=== PATIENT | female | born 1935 | race Caucasian/White ===

== ENCOUNTER 2017-07-28 11:58 | Inpatient (IN) ==
[2017-07-28 13:03] LABS: Basophils % 0.2 % (0.0-0.8); Hematocrit 37.8 VOL% (35.7-47.0); Hemoglobin 12.3 GM/DL (12.0-16.0); Immature Granulocytes % 1.2 %; Immature Granulocytes Absolute 0.18 #; Lymphocytes # 0.2 10*3/uL (1.4-4.0); Lymphocytes % 1.3 % (21.3-54.2); Mean Corpuscular HGB Conc 32.5 GM/DL (32-36); Mean Corpuscular Hemoglobin 28 PG (27-34); Mean Corpuscular Volume 84.4 FL (87-102); Mean Platelet Volume 8.8 FL (9.6-12.0); Monocytes # 0.4 10*3/uL (0.11-0.8); Monocytes % 2.7 % (1.7-12.7); Neutrophils # 14.6 10*3/uL (1.4-7.4); Neutrophils % 94.6 % (38.7-73.9); Platelet Count 507 T/CUMM (130-400); Red Blood Count 4.48 MC/CUMM (3.8-5.5); Red Cell Distribution Width 14.2 % (9.3-17.3); White Blood Count 15.4 T/CUMM (4-12)
[2017-07-28 13:25] LABS: Band Neutrophils 3 % (0-10); Giant Platelets Few; Hypochromasia 1+; Ovalocytes Slight; Platelet Estimate Increased; Segmented Neutrophils 92 % (50-85); Total Cells Counted 100
--- NOTE | 2017-07-28 13:27 | XRay Report ---
History: Shortness of breath Date: 07/28/2017 Study: Chest x-ray AP portable Comparison exam: November 08, 2010 The patient is status post previous right-sided thoracotomy and presumably partial pneumonectomy. There is cardiomegaly. There is no obvious mediastinal mass. There is some patchy and ill-defined infiltrate in the left mid to lower lung. There is some chronic scarring in the right lower lung, though there may be some superimposed mild hazy right upper lung infiltrate. 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 Osseous structures are unchanged. Impression: There is evidence of some pneumonia in the left mid to lower lung and possibly in the right upper lung PROCEDURE INTERPRETED AT [facility] DEPARTMENT OF RADIOLOGY Final Report Signed by: Dr. Miranda Camilo
[2017-07-28 13:30] LABS: Albumin 3.1 G/DL (3.4-5.0); Bilirubin,Total 0.4 MG/DL (0.2-1.0); Calcium 9.3 MG/DL (8.5-10.1); Osmolality,Calculated 254.5 MOS/KG (273-304); Potassium 3.5 MMOL/L (3.5-5.1); Troponin I Only 0.021 NG/ML (0.00-0.045)
[2017-07-28] MEDS ORDERED: cefTRIAXone 1,000 MG in SODIUM CHLORIDE 0.9% 100 ML IV STA (14:30)
--- NOTE | 2017-07-28 14:33 | Emergency Department Note ---
Narendra Morrison Manpreet, am scribing for, and in the presence of, Amaury Galeano MD 12:35. Froylan Morrison Doug C, MD, personally performed the services described in this documentation, ascribed by Glenn Mackey in my presence, and it is both accurate and complete 433 . Arrival - Arrival Chief Complaint: Shortness of Breath Stated Complaint: shortness of breath ED Nursing Triage Note: pt arrived via ems w/ complaint of shortness of breath that started just prior to arrival. Pt reports to EMS taht her shortness of breath has been ongoing for some time. States its no worse than usual. Family reports pt has only 1 lung d/t lung cancer 13yrs ago. Denies fever. Denies pain. Mode of Arrival: Stretcher Limitations: No Limitations Source: Patient, Family Time Seen by Provider: 07/28/17 12:25 - History of Present Illness HPI Narrative: Patient is a 81-year-old white female brought from home complaining of shortness of breath. Patient states she is not having any pain with this. She denies any cough or fever. She does not have any pain in her chest with deep breaths or cough. She has a prior history of lung cancer status post partial lobectomy 13 years ago. Her family notices she is not performing her usual duties around the house. She lives alone and manages her own affairs. She has not perceived any palpitations and she denies any PND or orthopnea symptoms. Onset (ago): hour(s) Consistency: constant Severity: moderate Allergies/Adverse Reactions: Allergies Allergy/AdvReac Type Severity Reaction Status Date / Time No Known Allergies Allergy Verified 07/28/17 14:19 Home Medications: Home Medications Medication Instructions Recorded Confirmed Type Aspirin 81 mg PO BEDTIME 07/28/17 07/28/17 History Calcium Carbonate [Calcium] 500 mg PO BID 07/28/17 07/28/17 History Dexamethasone [Dexamethasone Tab] 2 mg PO QAM 07/28/17 07/28/17 History Ferrous Sulfate [Iron] 325 mg PO BEDTIME 07/28/17 07/28/17 History Levothyroxine Tab [Synthroid Tab] 75 mcg PO BEDTIME 07/28/17 07/28/17 History Multivit-Min36/Iron/Folic Acid 1 each PO QAM 07/28/17 07/28/17 History [Geritol Complete Tablet] amLODIPine [Norvasc] 5 mg PO BEDTIME 07/28/17 07/28/17 History hydroCHLOROthiazide 25 mg PO DAILY PRN 07/28/17 07/28/17 History [Hydrochlorothiazide] Review of System - Review of System 12 point system: reviewed and no additional remarkable complaints except as stated - Review of System Constitutional: Present: other ("Pain all over"). Absent: chills, diaphoresis, fever Head/Ears/Nose/Throat: Absent: sore throat Respiratory: Present: respiratory distress. Absent: cough, wheezing Cardiovascular: Present: dyspnea on exertion. Absent: chest pain Gastrointestinal: Absent: abdominal pain, nausea, vomiting, diarrhea Genitourinary female: Absent: dysuria Musculoskeletal: Absent: back pain Skin: Absent: rash, lesions Neurological: Absent: headache, weakness, numbness, paresthesias Medical,Surgical,& Family Hx - Medical History Respiratory: History of: Lung Cancer Hematology: History of: Anemia Other: History of: Cancer (Lung cancer 13 yrs ago) - Surgical History Thoracic Surgeries: Surgical HX of;: Lobectomy - Family History Family History: noncontributory - Social History Smoking Status: Never smoker Frequency of Alcohol Use: None Type of Drug Use: None Exam Vital Signs: Vital Signs Temperature 98.8 F 07/28/17 12:00 Pulse Rate 85 07/28/17 13:00 Respiratory Rate 15 07/28/17 13:00 Blood Pressure 104/67 07/28/17 13:00 O2 Sat by Pulse Oximetry 100 07/28/17 13:00 - General General appearance: alert - Head Head exam: Present: atraumatic, normocephalic, normal inspection - Eye Eye exam: Present: normal appearance, PERRL, EOMI - ENT ENT exam: Present: normal exam, normal oropharynx, mucous membranes moist - Neck Neck exam: Present: normal inspection, full ROM, trachea midline - Chest Chest inspection: Present: normal inspection, symmetric chest wall rise - Respiratory Respiratory exam: Present: wheezes (Mild expiratory wheezing on left). Absent: normal lung sounds bilaterally, respiratory distress - Cardiovascular Cardiovascular exam: Present: regular rate, normal rhythm, murmur (3/6 systolic murmur at right base ). Absent: rubs, gallop - Abdominal Exam Abdominal exam: Present: soft, normal bowel sounds - Extremities Exam Extremities exam: Present: normal inspection, full ROM - Back Exam Back exam: Present: normal inspection, full ROM - Neurological Exam Neurological exam: Present: alert, oriented X3, CN II-XII intact, reflexes normal - Psychiatric Psychiatric exam: Present: normal affect, normal mood - Skin Skin exam: Present: warm, dry, intact, normal color. Absent: pallor Course Course Narrative: Patient's clinical presentation, laboratory and radiograph findings were discussed with both Dr. Rocha and Ghassan of the hospitalist service. Patient will be seen in the emergency room by Ghassan and evaluate for admission. Dr. Rocha will see her in consultation. Results - Labs CBC & BMP: 07/28/17 12:48 07/28/17 12:48 Lab Results: I have reviewed the patients labs Labs: Laboratory Tests 07/28/17 12:48 WBC 15.4 H RBC 4.48 Hgb 12.3 Hct 37.8 MCV 84.4 L MCH 28 MCHC 32.5 RDW 14.2 Plt Count 507 H MPV 8.8 L Neut % (Auto) 94.6 H Lymph % (Auto) 1.3 L Dixon % (Auto) 2.7 Eos % (Auto) 0.0 Baso % (Auto) 0.2 Neut # (Auto) 14.6 H Lymph # (Auto) 0.2 L Dixon # (Auto) 0.4 Eos # (Auto) 0.0 Baso # (Auto) 0.0 Immature Gran % 1.2 Nucleated RBC % 0.0 Immature Gran # 0.18 Nucleated RBCs # 0.00 Immature Plt Fraction 0.0 Laboratory Tests 07/28/17 12:48 Total Counted 100 Segmented Neutrophils 92 H Band Neutrophils 3 Monocytes 5 Platelet Estimate Increased Giant Platelets Few Hypochromasia 1+ Ovalocytes Slight Laboratory Tests 07/28/17 07/28/17 12:48 12:48 D-Dimer, Quantitative 0.7 Sodium 125 L Potassium 3.5 Chloride 79 L Carbon Dioxide 39 H Anion Gap 10.5 BUN 19 H Creatinine 0.50 L GFR Calculation 66 BUN/Creatinine Ratio 38.00 H Glucose 127 H Calculated Osmolality 254.5 L Calcium 9.3 Total Bilirubin 0.40 AST 19 ALT 24 Alkaline Phosphatase 55 Troponin I 0.021 Total Protein 7.0 Albumin 3.1 L Globulin 3.9 H Albumin/Globulin Ratio 0.7 L - EKG EKG results: interpreted by RICK, sinus rhythm (84 bpm) - Diagnostic Findings Procedure: Chest x-ray: report reviewed by me ("CXR: There is evidence of some pneumonia in the left mid to lower lung and possibly in the right upper lung.") Disposition Clinical Impression: Pneumonia Case discussed with: patient, patient's family Disposition: Still a Patient Condition: Stable Time of Disposition: 14:33
[2017-07-28] MEDS ORDERED: cefTRIAXone 1,000 MG VIAL ONE (14:35)
[2017-07-28 14:39] LABS: Apearance,Urine CLOUDY (Clear); Bacteria,Urine Few /HPF (Few); Bilirubin,Urine Negative (Negative); Blood, Urine Negative (Negative); Glucose,Urine (UA) Negative (Negative); Hyaline Casts,Urine 4 /LPF (0-3); Ketones,Urine Negative (Negative); Mucus,Urine Occasional /LPF (Occasional); Nitrite,Urine Negative (Negative); Protein,Urine Negative; RBC,Urine 1 /HPF (0-4); Squamous Epithelial Cell,Urine Occasional /HPF (0-10); Urine Color Amber (Yellow); Urine Specific Gravity 1.014 (1.001-1.035); Urine Urobilinogen < 2.0 EU/DL (0.2-1.0); WBC,Urine 4 /HPF (0-6)
--- NOTE | 2017-07-28 15:15 | Order Completion Report ---
See report scanned to EMR
[2017-07-28] MEDS ORDERED: INFLUENZA VIRUS VACCINE 0.5 ML SYRINGE IM ONE (16:13)
--- NOTE | 2017-07-28 16:13 | Hospitalist History & Physical ---
Assessment and Plan (1) Pneumonia Status: Acute Assessment and plan: s/p right partial pneumonectomy due to cancer. CXR showed an evidence of some pneumonia in the left mid to lower lung and possibly in the right upper lung. Plan IV Rocephin and Azithromax, oxygen, nebs treatment Follow [place], Influenza A & B testing Current Visit: Yes (2) Acute respiratory distress Status: Acute Assessment and plan: due to combination of pneumonia and the underlying lung pathology. 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 Patient has had poor intake in the last 1week. 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 She had become weaker, not able to do her regular activities. Last night, she began having worsening SOB, this am, she called her daughter who then called EMS that brought her to the ER.She denies associated history of fever, cough, chest pain and chest tightness. No history of wheezing, leg swelling or pain.No nausea or vomiting. Upon arrival to the ER,CXR showed an evidence of some pneumonia in the left mid to lower lung and possibly in the right upper lung.Labs showed an elevated WBC of 15.4, sodium of 125 and positive UA. She was given IV Rocephin and currently on admission for further care. Home Medications Medication Instructions Recorded Confirmed Type Aspirin 81 mg PO BEDTIME 07/28/17 07/28/17 History Calcium Carbonate [Calcium] 500 mg PO BID 07/28/17 07/28/17 History Dexamethasone [Dexamethasone Tab] 2 mg PO QAM 07/28/17 07/28/17 History Ferrous Sulfate [Iron] 325 mg PO BEDTIME 07/28/17 07/28/17 History Levothyroxine Tab [Synthroid Tab] 75 mcg PO BEDTIME 07/28/17 07/28/17 History Multivit-Min36/Iron/Folic Acid 1 each PO QAM 07/28/17 07/28/17 History [Geritol Complete Tablet] amLODIPine [Norvasc] 5 mg PO BEDTIME 07/28/17 07/28/17 History hydroCHLOROthiazide 25 mg PO DAILY PRN 07/28/17 07/28/17 History [Hydrochlorothiazide] Allergies Allergy/AdvReac Type Severity Reaction Status Date / Time No Known Allergies Allergy Verified 07/28/17 14:19 Medical,Surgical,& Family Hx - Medical History Respiratory: History of: Lung Cancer Hematology: History of: Anemia Other: History of: Cancer (Lung cancer 13 yrs ago) - Surgical History Thoracic Surgeries: Surgical HX of;: Lobectomy - Social History Smoking Status: Never smoker Frequency of Alcohol Use: None Type of Drug Use: None 12 point system: reviewed and no additional remarkable complaints except as stated Exam - Constitutional Vitals: Period Temp Pulse Resp BP Sys/Gallego Pulse Ox Last 24 Hr 98.8 F-98.8 F 77-92 15-33 103-132/52-72 97-100 General appearance: mild distress, cachectic - Head Head exam: Present: normal inspection - Respiratory Respiratory exam: Present: decreased breath sounds - Cardiovascular Cardiovascular exam: Present: regular rate and rhythm - GI/Abdominal GI/Abdominal exam: Present: normal bowel sounds - Extremities Exam Extremities exam: Present: normal inspection - Neurological Exam Neurological exam: Present: alert, oriented X3 Results - Labs CBC & BMP: 07/28/17 12:48 07/28/17 12:48 Lab Results: I have reviewed the past 24 hour labs
[2017-07-28] MEDS ORDERED: ALBUTEROL/IPRATROPIUM 3 ML NEB RESP TX PRN (17:19)
[2017-07-28] MEDS ORDERED: ENOXAPARIN 40 MG/0.4 ML SYRINGE SUBCUT SCH (18:00)
[2017-07-28 18:12] LABS: Troponin I Only 0.023 NG/ML (0.00-0.045)
[2017-07-28] MEDS: SODIUM CHLORIDE 0.9% 1,000 ML IV SCH (18:14)
[2017-07-28 18:21] LABS: Calcium 9.1 MG/DL (8.5-10.1); Free T4 (Free Thyroxine) 0.85 NG/DL (0.76-1.46); Magnesium 2.1 MG/DL (1.8-2.4); Osmolality,Calculated 257.2 MOS/KG (273-304); Potassium 3.4 MMOL/L (3.5-5.1); Risk Ratio 2.31; VLDL CHOLESTEROL 19.2 MG/DL
--- NOTE | 2017-07-28 18:35 | CT Report ---
History: Shortness of breath. Pneumonia. History of lung cancer. Elevated d-dimer Date: 07/28/2017 Study: CT chest with IV contrast with pulmonary embolus technique Comparison exam: CT chest March 18, [address] exam was performed using one or more of the following dose reduction techniques: Automated exposure control, adjustment of the mA and/or kV according to patient size, or use of iterative reconstruction technique. Spiral CT sections were obtained through the lungs following the IV administration of 80 mL of Omnipaque 350 without immediate complication . Multiplanar reconstruction images are also evaluated. There is no definite discrete filling defect within the pulmonary arterial tree to suggest acute pulmonary embolic disease. There is no thoracic aortic aneurysm or dissection. There is no obvious mediastinal mass or mediastinal lymphadenopathy. There is some enlarging cavitary change in the mid to inferior right lung with some partial internal septation, enlarged compared to the previous study from 2013. This occupies the lower 40% of the right hemithorax. There is some compressive atelectasis of the adjacent right midlung. There is also some right perihilar patchy pneumonia. There is some mild tree-in-bud type infiltrate in the left upper lobe with infiltrative changes also extending into to the lingula. There is no acute abnormality of the partially visualized upper abdomen. Impression: No evidence of acute pulmonary embolic disease Tree-in-bud infiltrate in the left upper lung which could represent nonspecific bronchiolitis. Also consider mycobacterial infection and chronic aspiration. Mild patchy right perihilar opacity, presumably inflammatory/infectious There is an enlarging cavitary area occupying the lower 40% of the right hemithorax, enlarged since 2013. This could represent slowly enlarging chronic inflammatory-type lesion. Neoplasm is thought to be less likely, but in the differential diagnosis. PROCEDURE INTERPRETED AT [facility] DEPARTMENT OF RADIOLOGY Final Report Signed by: Dr. Miranda Camilo
[2017-07-28] MEDS: AZITHROMYCIN INJ 500 MG in SODIUM CHLORIDE 0.9% 250 ML IV SCH (18:48)
[2017-07-28] MEDS: FERROUS SULFATE 325 MG TABLET PO SCH (21:10)
[2017-07-28] MEDS: amLODIPine 5 MG TABLET PO SCH (21:11)
[2017-07-28] MEDS: LEVOTHYROXINE 75 MCG TABLET PO SCH (21:13)
[2017-07-28] MEDS: ASPIRIN CHEW 81 MG TABLET PO SCH (21:15)
[2017-07-28] MEDS: CALCIUM (CARBONATE) 500 MG TABLET PO SCH (22:28)
[2017-07-29 04:51] LABS: Basophils % 0.1 % (0.0-0.8); Eosinophils % 0.1 % (0.00-10.9); Hematocrit 32.9 VOL% (35.7-47.0); Hemoglobin 10.6 GM/DL (12.0-16.0); Immature Granulocytes % 0.9 %; Immature Granulocytes Absolute 0.09 #; Lymphocytes # 0.7 10*3/uL (1.4-4.0); Mean Corpuscular HGB Conc 32.2 GM/DL (32-36); Mean Corpuscular Hemoglobin 27 PG (27-34); Mean Corpuscular Volume 84.6 FL (87-102); Mean Platelet Volume 9.5 FL (9.6-12.0); Monocytes # 0.5 10*3/uL (0.11-0.8); Monocytes % 5.3 % (1.7-12.7); Neutrophils # 8.8 10*3/uL (1.4-7.4); Neutrophils % 86.6 % (38.7-73.9); Platelet Count 441 T/CUMM (130-400); Red Blood Count 3.89 MC/CUMM (3.8-5.5); Red Cell Distribution Width 14.1 % (9.3-17.3); White Blood Count 10.1 T/CUMM (4-12)
[2017-07-29 05:24] LABS: Alanine Aminotransferase 18 U/L (13-56); Albumin 2.5 G/DL (3.4-5.0); Alkaline Phosphatase 41 U/L (45-117); Aspartate Amino Transferase 13 U/L (0-37); Blood Urea Nitrogen 15 MG/DL (7-18); Glucose 76 MG/DL (74-106); Osmolality,Calculated 257.9 MOS/KG (273-304); Potassium 3.4 MMOL/L (3.5-5.1); Sodium 129 MMOL/L (136-145); Total Protein 5.4 G/DL (6.4-8.3); Troponin I Only 0.027 NG/ML (0.00-0.045)
[2017-07-29] MEDS: PANTOPRAZOLE 40 MG TABLET PO SCH (08:44)
[2017-07-29] MEDS: MULTIVITAMIN (CENTRUM) TABLET PO SCH (08:44)
[2017-07-29] MEDS: CALCIUM (CARBONATE) 500 MG TABLET PO SCH ×2 (08:45→21:11)
[2017-07-29] MEDS ORDERED: DEXAMETHASONE 4 MG TABLET PO SCH (09:00)
[2017-07-29] MEDS: SODIUM CHLORIDE 0.9% 1,000 ML IV SCH (13:56)
[2017-07-29] MEDS: methylPREDNISolone SOD SUC 40 MG/1 ML VIAL IV SCH (16:03)
[2017-07-29] MEDS: ZINC OXIDE PASTE 113 GM TUBE TOP PRN (16:05)
[2017-07-29 16:11] LABS: % Iron Saturation 62.6 % (18-50)
--- NOTE | 2017-07-29 16:12 | Pulmonology Consult Note ---
History of Present Illness Chief complaint: Weakness. Mild alteration in mental status. UTI. Iron deficiency. History of present illness: Ms. Dasilva is a 81 year old white female whom I have seen in my office in the past. I been consult to see her in pulmonary consultation for evaluation and treatment. Patient was seen along with 3 family members. Patient has felt weak and she has had trouble with concentration. She has had trouble keeping up with what she normally does at home. She lives alone. She has some vague increased shortness of breath. She has had no significant cough. Daughter says that she has active sort of needy lately. Most of the other complaints have been nonspecific. The remainder of the review of systems is negative Allergies. None Medicines. Baby aspirin once a day calcium 500 twice daily dexamethasone 2 mg every morning. This was started recently. Iron grains 5 once a day. Synthroid 75 mcg daily Geritol tablet 1 every morning Norvasc 5 mg daily Hydrochlorothiazide 25 mg daily Past history. Recent onset of iron deficiency anemia. Previous on lobectomy right lung for melanoma. Hypothyroidism. Osteoporosis. Social history. Lives alone. Does not use alcohol and never smoked. Family history. Noncontributory. Chest x-ray. My interpretation. 07/28/2017. On the right side there is been a previous lobectomy. The residual right upper lung has gradually decreased in size mainly secondary to pleural disease. There is cystic areas within the residual right upper lung. Left lung reveals multiple areas of interstitial scarring. Both hilar areas contain calcifications. The trachea and mainstem bronchi are calcified. There is no heart failure and I see no masses. CT scan of the chest. Right upper lung is mainly becoming a cystic cavity. This is progressed in the last 3 years. No mass-effect. Mild changes in the left upper lung may reflect infection. No evidence of pulmonary emboli. Echocardiogram. 10/31/2016. Left ventricular ejection fraction is greater than 65%. There is mild concentric left ventricular hypertrophy with diastolic dysfunction. +2 increase in left atrial diameter. Mildly thickened mitral valve with mild mitral regurgitation and moderate aortic stenosis. Mean aortic valve gradient was 17 mmHg and the aortic valve area was calculated at 1.4 cm. Pulmonary artery pressures were 28.9 mmHg plus right atrial pressure which is usually 4-8. Moderate tricuspid regurgitation. Bone density studies. 03/27/2017. 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 High risk for fracture. Sodium is 129. Potassium 3.4. Chloride is 87. Creatinine is 0.4. BUN is 37. Hemoglobin A1c is 6.2. Liver function tests are normal troponin is normal. Natruretic peptide was 303. Total protein and albumin are low at 5.4 and 2.5 respectively. Thyroid function tests are normal. H&H is 10.6/32.9. MCV is low and the other indices are low normal with a normal red blood cell distribution with platelets of 441,000 with a low MPV. White count at admission was 15,400 with 94.66. This is now dropped to 10,100 with 86.66 urinalysis showed a few bacteria. Microbiology. Urine is growing greater than 100,000 gram-negative rods. Influenza screens are negative. Blood cultures are not growing at 1 day. Vital signs. Normal. See below. O2 sats are 99%. Psychiatric. Oriented 3 but not particularly good historian Neurologic. Cranial nerves are intact with severe decrease hearing acuity. Long track motor functions intact. Sensory exam and gait were not done. Face. Symmetrical. No edema of the tongue or lips. Neck. Symmetrical. No mass no meningismus. Chest. Asymmetrical. Hardly any breath sounds in the right. There is a little after surprisingly good and I hear no wheezing. Heart. PMI is normal. There is a grade 1/2 over 6 systolic ejection murmur heard over the aortic valve area. Abdomen. Nontender Extremities. No edema Skin of the face hands and lower legs showed no cancerous infectious lesions. No other areas were examined. Arterial. Carotid upstroke is fair. Upper extremity pulses are palpable lower extremity pulses are nonpalpable but there is no evidence of lower extremity ischemia Venous exam neck upper and lower extremities are normal. The remainder the exam is noncontributory. Impression. 1. Probable urinary tract infection with gram-negative tuyet. 2. Altered mental status. Suspect it will automatic glove turner and former to be secondary to #1 #3. Possible early left upper lung pulmonary infection. 4. Iron deficiency anemia 5. Hypothyroidism on replacement. Check for adequacy of replacement. 6. Volume depletion with mild prerenal azotemia. Diuretics have been stopped. 7. Osteo-porosis. 8. 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 Progressive scarring in the right hemithorax with large cystic areas forming in the residual right lung and progressive pleural disease. 9. Mild hyponatremia and hypokalemia Plan. 1. Continue Zithromax. 2. Change Rocephin to Fortaz pending urine cultures 3. Recheck iron total iron-binding capacity. The patient is not getting enough iron or iron infusion may help. 3. Follow-up chest x-ray 4. ABGs 5. Discontinue Lovenox 6. Change low-dose Decadron the low-dose Solu-Medrol. 7. See orders. Home Medications Medication Instructions Recorded Confirmed Type Aspirin 81 mg PO BEDTIME 07/28/17 07/28/17 History Calcium Carbonate [Calcium] 500 mg PO BID 07/28/17 07/28/17 History Dexamethasone [Dexamethasone Tab] 2 mg PO QAM 07/28/17 07/28/17 History Ferrous Sulfate [Iron] 325 mg PO BEDTIME 07/28/17 07/28/17 History Levothyroxine Tab [Synthroid Tab] 75 mcg PO BEDTIME 07/28/17 07/28/17 History Multivit-Min36/Iron/Folic Acid 1 each PO QAM 07/28/17 07/28/17 History [Geritol Complete Tablet] amLODIPine [Norvasc] 5 mg PO BEDTIME 07/28/17 07/28/17 History hydroCHLOROthiazide 25 mg PO DAILY PRN 07/28/17 07/28/17 History [Hydrochlorothiazide] Allergies Allergy/AdvReac Type Severity Reaction Status Date / Time No Known Allergies Allergy Verified 07/28/17 14:19 Exam (Pulmonay) H&P - Constitutional Vitals: Period Temp Pulse Resp BP Sys/Gallego Pulse Ox Last 24 Hr 97.5 F-98.3 F 71-107 18-20 103-128/49-69 99-100 Medical,Surgical,& Family Hx - Medical History Endocrine: History of: Thyroid Disorder Respiratory: History of: Lung Cancer Hematology: History of: Anemia Other: History of: Cancer (Lung cancer 13 yrs ago) - Surgical History Thoracic Surgeries: Surgical HX of;: Lobectomy - Social History Smoking Status: Never smoker Frequency of Alcohol Use: None Type of Drug Use: None Results - Labs CBC & BMP: 07/29/17 03:43 07/29/17 03:43
[2017-07-29 16:21] LABS: Free T4 (Free Thyroxine) 1.01 NG/DL (0.76-1.46); Thyroid Stimulating Hormone 3.27 uIU/ml (0.358-3.74)
[2017-07-29] MEDS: AZITHROMYCIN INJ 500 MG in SODIUM CHLORIDE 0.9% 250 ML IV SCH (17:04)
[2017-07-29] MEDS: ASPIRIN CHEW 81 MG TABLET PO SCH (21:11)
[2017-07-29] MEDS: FERROUS SULFATE 325 MG TABLET PO SCH (21:11)
[2017-07-29] MEDS: amLODIPine 5 MG TABLET PO SCH (21:11)
[2017-07-29] MEDS: LEVOTHYROXINE 75 MCG TABLET PO SCH (21:11)
[2017-07-30 02:42] LABS: ABG Base Excess 11.5 MMOL/L (-2.5-2.5); ABG HCO3 38.3 MMOL/L (20-26); ABG Oxygen Saturation 98.7 % (95-100); ABG PCO2 62.5 MM HG (35-48); ABG PH 7.405 (7.35-7.45); ABG PO2 129.2 MM HG (80-95); ABG TCO2 40.2 MMOL/L (23-27); Allen Test Positive
[2017-07-30] MEDS: methylPREDNISolone SOD SUC 40 MG/1 ML VIAL IV SCH ×2 (04:06→15:31)
[2017-07-30] MEDS: CALCIUM (CARBONATE) 500 MG TABLET PO SCH ×2 (08:46→21:21)
[2017-07-30] MEDS: MULTIVITAMIN (CENTRUM) TABLET PO SCH (08:46)
[2017-07-30] MEDS: PANTOPRAZOLE 40 MG TABLET PO SCH (08:46)
--- NOTE | 2017-07-30 09:00 | XRay Report ---
Portable chest Date: 07/30/2017 Clinical history: Shortness of breath Comparison: 07/28/2017 Technique: Portable AP sitting chest Findings: Stable cardiomegaly. Prior right thoracotomy with persistent relative elevation right hemidiaphragm. Bullous emphysema with fairly stable appearing pleural parenchymal findings in the right hemithorax. Progressive parenchymal findings at the left mid to lower lung zone. Persistent shift of mediastinum to the right with degenerative changes. Impression: Status post right thoracotomy with little change in the pleural-parenchymal findings in the right hemithorax in patient with bullous emphysema. Progressive infiltration/edema in the left mid to lower lung zone. PROCEDURE INTERPRETED AT [facility] DEPARTMENT OF RADIOLOGY Final Report Signed by: Dr. Melani Vazquez
[2017-07-30] MEDS ORDERED: CYANOCOBALAMIN 1000 MCG/1 ML VIAL IM ONE (11:26)
--- NOTE | 2017-07-30 13:04 | Pulmonology Progress Note ---
Pulmonary - PN: Subj Interval history: Casey Miguel, [facility] acting as scribe for Dr. Winston Rocha Ms. Dasilva is an 81-year-old white female long-term patient of Dr. Fowler who is on initial pulmonary consultation 07/29/2017. At that time, our impressions were: 1. Probable urinary tract infection with gram-negative tuyet. 2. Altered mental status. Suspect it will air turning machine feeder to be secondary to #1 3. Possible early left upper lung pulmonary infection. 4. Iron deficiency anemia 5. Hypothyroidism on replacement. Check for adequacy of replacement. 6. Volume depletion with mild prerenal azotemia. Diuretics have been stopped. 7. Osteo-porosis. 8. 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 Progressive scarring in the right hemithorax with large cystic areas forming in the residual right lung and progressive pleural disease. 9. Mild hyponatremia and hypokalemia 07/30/2017. 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 Today 's chest x-ray is stable. Sputum for Gram stain, culture and sensitivity was ordered yesterday, but thus far the patient has not produced a sputum for testing. Cold agglutinins are negative at 1:2. Legionella is pending. ABGs this morning on an FiO2 of 28% showed a pH of 7.405, PCO2 62.5, PO2 129.2, bicarb 38.3, and oxygen saturation 98.7%. Because of her CO2 retention, we will start Diamox 250 mg IV daily. Will repeat ABGs and BMP in the morning. Iron studies are normal. B12 is low at 292 so she will be given B12 injection today. We will obtain a folic acid level. Urine is growing a gram-negative tuyet. Final ID and sensitivities pending. She is on azithromycin and Fortaz and has been afebrile. Medications have been reviewed. Labs been reviewed. Exam (Progress Note) - Constitutional Vitals: Period Temp Pulse Resp BP Sys/Gallego Pulse Ox Last 24 Hr 96.6 F-97.8 F 70-84 18-18 91-108/51-66 98-100 Exam: Chest is asymmetrical with hardly any breath sounds on the right; no appreciable wheeze Heart no gallop Abdomen is nontender and nondistended; bowel sounds positive 4 Extremities with nothing to suggest acute deep venous thrombophlebitis Psychiatric oriented 3 Neurologic long-term motor function is intact Plan: Start Diamox 250 mg IV daily. Repeat ABGs and BMP in the morning. Check folate level. B12 injection today. See orders. Results - Labs CBC & BMP: 07/29/17 03:43 07/29/17 03:43
[2017-07-30] MEDS: SODIUM CHLORIDE 0.9% 1,000 ML IV SCH (13:51)
--- NOTE | 2017-07-30 16:30 | Physician Query Form ---
CLICK EDIT DOCUMENT TO SELECT QUERY ANSWER --> OK --> SIGN Jessica López RN Clinical Hydraulic Jack Operator W) [phone] (f) [phone] [email or web address] PROVIDERS: Make your selection(s) from the choices in EACH section by typing an "x" and enter comments in the comment section. Please use your independent medical judgment in providing your response. This request does not imply that any particular answer is desired or expected. CLINICAL INDICATORS: (Providers should not edit this section) Height: 5FT 3IN Weight: 77 LBS Credit Specialist BMI: 13.7 Motorcycle Repair Shop Supervisor notes:UNINTENTIONAL WEIGHT LOSS Other clinical notes: CACHECTIC Based on the above, which following choice most accurately represents the patient's nutritional status? ( ) Malnutrition ( ) mild ( ) moderate ( x) severe ( ) Protein calorie malnutrition ( ) mild ( ) moderate ( ) severe ( ) Emaciation due to malnutrition ( ) Nutritional marasmus ( ) Cachexia ( ) Underweight ( ) No nutritional deficiency ( ) Other, please specify: ( ) Clinically unable to determine Mild Malnutrition (BMI < 18.5, % Normal Body Weight 85-95%) Moderate Malnutrition (BMI < 17, % Normal Body Weight 75-85%) Severe Malnutrition (BMI < 16, % Normal Body Weight < 75%) Source: [place] COMMENTS: PLEASE ALSO DOCUMENT RESPONSE IN PROGRESS NOTES AND/OR DISCHARGE SUMMARY Use of terms such as suspected, likely, or probable (associated with a specific diagnosis that is being evaluated, monitored, or treated as if it exists) are acceptable and can be restated in the discharge summary if not ruled out. MTDD
[2017-07-30] MEDS: AZITHROMYCIN INJ 500 MG in SODIUM CHLORIDE 0.9% 250 ML IV SCH (17:16)
--- NOTE | 2017-07-30 17:45 | Hospitalist Progress Note ---
Assessment and Plan (1) UTI (urinary tract infection) Status: Acute Assessment and plan: The patient has E. coli urinary tract infection sensitive to most antibiotics. We will continue with present antimicrobial care and recheck CBC and BMP in the morning. Current Visit: Yes Qualifiers: Urinary tract infection type: acute cystitis Hematuria presence: without hematuria Qualified Code(s): N30.00 - Acute cystitis without hematuria (2) S/P pneumonectomy Status: Acute Current Visit: Yes Hospitalist: Subjective Interval history: Mrs. Dasilva has previous right lung pneumonectomy. She now comes to hospital with weakness and some shortness of breath. She has urinary tract infection documented to be E. coli pansensitive to antibiotics. The patient may have early pneumonia on the left-hand side. The patient is improving and appetite is better. Exam - Constitutional Vitals: Period Temp Pulse Resp BP Sys/Gallego Pulse Ox Last 24 Hr 96.8 F-97.8 F 70-84 18-18 91-112/51-66 98-100 General appearance: mild distress - Respiratory Respiratory exam: Present: decreased breath sounds (On the right side), rhonchi (On the left-hand side) - Cardiovascular Cardiovascular exam: Present: regular rate and rhythm - GI/Abdominal GI/Abdominal exam: Present: normal bowel sounds Results - Labs CBC & BMP: 07/29/17 03:43 07/29/17 03:43 Lab Results: I have reviewed the past 24 hour labs
[2017-07-30] MEDS: LEVOTHYROXINE 75 MCG TABLET PO SCH (21:21)
[2017-07-30] MEDS: amLODIPine 5 MG TABLET PO SCH (21:21)
[2017-07-30] MEDS: ASPIRIN CHEW 81 MG TABLET PO SCH (21:21)
[2017-07-30] MEDS: FERROUS SULFATE 325 MG TABLET PO SCH (21:21)
[2017-07-31] MEDS: methylPREDNISolone SOD SUC 40 MG/1 ML VIAL IV SCH ×2 (04:30→15:37)
[2017-07-31 05:49] LABS: Basophils % 0.1 % (0.0-0.8); Hematocrit 33.1 VOL% (35.7-47.0); Hemoglobin 10.4 GM/DL (12.0-16.0); Immature Granulocytes % 0.9 %; Immature Granulocytes Absolute 0.15 #; Lymphocytes # 0.5 10*3/uL (1.4-4.0); Mean Corpuscular HGB Conc 31.4 GM/DL (32-36); Mean Corpuscular Hemoglobin 28 PG (27-34); Mean Corpuscular Volume 87.6 FL (87-102); Mean Platelet Volume 8.8 FL (9.6-12.0); Monocytes # 0.6 10*3/uL (0.11-0.8); Monocytes % 3.6 % (1.7-12.7); Neutrophils # 15.3 10*3/uL (1.4-7.4); Neutrophils % 92.4 % (38.7-73.9); Platelet Count 430 T/CUMM (130-400); Red Blood Count 3.78 MC/CUMM (3.8-5.5); Red Cell Distribution Width 14.2 % (9.3-17.3); White Blood Count 16.5 T/CUMM (4-12)
[2017-07-31 06:11] LABS: Lymphocytes 2 % (20-55); Segmented Neutrophils 95 % (50-85); Total Cells Counted 100
[2017-07-31 06:12] LABS: Calcium 8.4 MG/DL (8.5-10.1); Giant Platelets Few; Hypochromasia 1+; Magnesium 1.9 MG/DL (1.8-2.4); Osmolality,Calculated 270.1 MOS/KG (273-304); Platelet Estimate Adequate; Potassium 3.7 MMOL/L (3.5-5.1)
[2017-07-31 06:14] LABS: ABG Base Excess 7.3 MMOL/L (-2.5-2.5); ABG Oxygen Saturation 98.7 % (95-100); ABG PCO2 52.4 MM HG (35-48); ABG PH 7.417 (7.35-7.45); ABG PO2 123.8 MM HG (80-95); ABG TCO2 34.6 MMOL/L (23-27)
[2017-07-31] MEDS: SODIUM CHLORIDE 0.9% 1,000 ML IV SCH ×2 (06:14→13:16)
--- NOTE | 2017-07-31 08:20 | XRay Report ---
Portable chest Date: 07/31/2017 Clinical history: Shortness of breath Comparison: 07/30/2017 Technique: Portable AP sitting chest Findings: Stable cardiomegaly in patient with prior right thoracotomy. Persistent shift of mediastinum to the right with relative elevation of the right hemidiaphragm. No significant change in the parenchymal findings in the lungs with stable pleural effusions. Degenerative changes are noted. Impression: Status post right thoracotomy with bullous emphysema. Fairly stable appearing infiltration/edema with small pleural effusions and cavitary/cystic pathology in the right mid-lower lung zone.. It is difficult to exclude additional underlying pathology and continued follow-up chest x-ray is recommended. PROCEDURE INTERPRETED AT [facility] DEPARTMENT OF RADIOLOGY Final Report Signed by: Dr. Melani Vazquez
[2017-07-31] MEDS: MULTIVITAMIN (CENTRUM) TABLET PO SCH (09:21)
[2017-07-31] MEDS: CALCIUM (CARBONATE) 500 MG TABLET PO SCH ×2 (09:21→21:11)
[2017-07-31] MEDS: PANTOPRAZOLE 40 MG TABLET PO SCH (09:39)
[2017-07-31] MEDS: ZINC OXIDE PASTE 113 GM TUBE TOP PRN (12:04)
--- NOTE | 2017-07-31 12:52 | Pulmonology Progress Note ---
Pulmonary - PN: Subj Interval history: Casey Miguel, [facility] acting as scribe for Dr. Winston Rocha Ms. Dasilva is an 81-year-old white female long-term patient of Dr. Fowler who is on initial pulmonary consultation 07/29/2017. At that time, our impressions were: 1. Probable urinary tract infection with gram-negative tuyet. 2. Altered mental status. Suspect it will return to factory clerk to be secondary to #1 3. Possible early left upper lung pulmonary infection. 4. Iron deficiency anemia 5. Hypothyroidism on replacement. Check for adequacy of replacement. 6. Volume depletion with mild prerenal azotemia. Diuretics have been stopped. 7. Osteo-porosis. 8. 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 Progressive scarring in the right hemithorax with large cystic areas forming in the residual right lung and progressive pleural disease. 9. Mild hyponatremia and hypokalemia 07/30/2017. The patient was seen today along with her patient pet care associate. Today 's chest x-ray is stable. Sputum for Gram stain, culture and sensitivity was ordered yesterday, but thus far the patient has not produced a sputum for testing. Cold agglutinins are negative at 1:2. Legionella is pending. ABGs this morning on an FiO2 of 28% showed a pH of 7.405, PCO2 62.5, PO2 129.2, bicarb 38.3, and oxygen saturation 98.7%. Because of her CO2 retention, we will start Diamox 250 mg IV daily. Will repeat ABGs and BMP in the morning. Iron studies are normal. B12 is low at 292 so she will be given B12 injection today. We will obtain a folic acid level. Urine is growing a gram-negative tuyet. Final ID and sensitivities pending. She is on azithromycin and Fortaz and has been afebrile. Medications have been reviewed. Labs been reviewed. 07/31/2017. The patient was seen today along with her brother and several other family members. The patient is doing well this morning. She has had increased appetite secondary to Solu-Medrol. She has been on long-term dexamethasone treatment because of scarring in the right hemithorax. Admission she has sodium of 125 and with the discontinuation of her hydrochlorothiazide, this has improved to 135. Urine culture grew E. coli. This is being appropriately treated with antibiotics. Mentation has improved back to her baseline. Her family had several questions regarding her need for home health, physical therapy, etc. We have spoken with Venus Walter, social work nurse, and will ask her to speak with the patient and her family regarding discharge planning needs. We feel she will most likely benefit from home health and home physical therapy. Medications have been reviewed. We made no changes today. Labs been reviewed. White count is 16,500 with 92.4% segs; H&H 10.4/33.1; platelet count 130,000; creatinine 0.30, BUN 13, sodium 135, potassium 3.7, magnesium 1.9; folate is normal at 12.9 ABGs this morning on an unlisted FiO2 showed a pH of 7.417, PCO2 52.4, PO2 123.8 , bicarb 33.0, and oxygen saturation 98.7% Exam (Progress Note) - Constitutional Vitals: Period Temp Pulse Resp BP Sys/Gallego Pulse Ox Last 24 Hr 97.3 F-98.3 F 78-91 14-18 103-116/50-64 95-99 Exam: Chest is asymmetrical with hardly any breath sounds on the right; no appreciable wheeze Heart no gallop Abdomen is nontender and nondistended; bowel sounds positive 4 Extremities with nothing to suggest acute deep venous thrombophlebitis Psychiatric oriented 3 Neurologic long-term motor function is intact Plan: Continue present treatment. services program manager consult for discharge planning. See orders. Results - Labs CBC & BMP: 07/31/17 05:12 07/31/17 05:12
--- NOTE | 2017-07-31 16:06 | Hospitalist Progress Note ---
Hospitalist: Subjective Interval history: Assessment and Plan: E Coli UTI, POA Status: Acute Assessment and plan: E. coli is pansensitive, continue Fortaz Current Visit: Yes Metabolic encephalopathy and acute delirium Status: Acute Assessment and plan: Was due to UTI, mental status is improving Current Visit: Yes S/P pneumonectomy Status: Acute Current Visit: Yes She possibly has left upper lung pulmonary pneumonitis, continue antibiotics Physical deconditioning, physical therapy has been ordered. hop farm worker is following for swing bed placement. Exam - Constitutional Vitals: Period Temp Pulse Resp BP Sys/Gallego Pulse Ox Last 24 Hr 97.3 F-98.4 F 77-91 14-22 101-116/50-64 95-99 Results - Labs CBC & BMP: 07/31/17 05:12 07/31/17 05:12
[2017-07-31] MEDS: AZITHROMYCIN INJ 500 MG in SODIUM CHLORIDE 0.9% 250 ML IV SCH (17:10)
[2017-07-31] MEDS: LEVOTHYROXINE 75 MCG TABLET PO SCH (21:11)
[2017-07-31] MEDS: FERROUS SULFATE 325 MG TABLET PO SCH (21:11)
[2017-07-31] MEDS: amLODIPine 5 MG TABLET PO SCH (21:11)
[2017-07-31] MEDS: ASPIRIN CHEW 81 MG TABLET PO SCH (21:11)
[2017-08-01] MEDS: methylPREDNISolone SOD SUC 40 MG/1 ML VIAL IV SCH ×2 (04:02→16:31)
[2017-08-01 06:37] LABS: Calcium 8.3 MG/DL (8.5-10.1); Magnesium 2.2 MG/DL (1.8-2.4); Osmolality,Calculated 269.1 MOS/KG (273-304); Potassium 3.8 MMOL/L (3.5-5.1)
[2017-08-01] MEDS: MULTIVITAMIN (CENTRUM) TABLET PO SCH (09:24)
[2017-08-01] MEDS: CALCIUM (CARBONATE) 500 MG TABLET PO SCH ×2 (09:24→21:30)
[2017-08-01] MEDS: PANTOPRAZOLE 40 MG TABLET PO SCH (09:25)
--- NOTE | 2017-08-01 11:33 | Pulmonology Progress Note ---
Pulmonary - PN: Subj Interval history: Casey Miguel, [facility] acting as scribe for Dr. Winston Rocha Ms. Dasilva is an 81-year-old white female long-term patient of Dr. Fowler who is on initial pulmonary consultation 07/29/2017. At that time, our impressions were: 1. Probable urinary tract infection with gram-negative tueyt. 2. Altered mental status. Suspect it will turner in to be secondary to #1 3. Possible early left upper lung pulmonary infection. 4. Iron deficiency anemia 5. Hypothyroidism on replacement. Check for adequacy of replacement. 6. Volume depletion with mild prerenal azotemia. Diuretics have been stopped. 7. Osteo-porosis. 8. 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 Progressive scarring in the right hemithorax with large cystic areas forming in the residual right lung and progressive pleural disease. 9. Mild hyponatremia and hypokalemia 07/30/2017. The patient was seen today along with her patient technical healthcare consultant. Today 's chest x-ray is stable. Sputum for Gram stain, culture and sensitivity was ordered yesterday, but thus far the patient has not produced a sputum for testing. Cold agglutinins are negative at 1:2. Legionella is pending. ABGs this morning on an FiO2 of 28% showed a pH of 7.405, PCO2 62.5, PO2 129.2, bicarb 38.3, and oxygen saturation 98.7%. Because of her CO2 retention, we will start Diamox 250 mg IV daily. Will repeat ABGs and BMP in the morning. Iron studies are normal. B12 is low at 292 so she will be given B12 injection today. We will obtain a folic acid level. Urine is growing a gram-negative tuyet. Final ID and sensitivities pending. She is on azithromycin and Fortaz and has been afebrile. Medications have been reviewed. Labs been reviewed. 07/31/2017. The patient was seen today along with her brother and several other family members. The patient is doing well this morning. She has had increased appetite secondary to Solu-Medrol. She has been on long-term dexamethasone treatment because of scarring in the right hemithorax. Admission she has sodium of 125 and with the discontinuation of her hydrochlorothiazide, this has improved to 135. Urine culture grew E. coli. This is being appropriately treated with antibiotics. Mentation has improved back to her baseline. Her family had several questions regarding her need for home health, physical therapy, etc. We have spoken with Venus Walter, social work specialist, and will ask her to speak with the patient and her family regarding discharge planning needs. We feel she will most likely benefit from home health and home physical therapy. Medications have been reviewed. We made no changes today. Labs been reviewed. White count is 16,500 with 92.4% segs; H&H 10.4/33.1; platelet count 130,000; creatinine 0.30, BUN 13, sodium 135, potassium 3.7, magnesium 1.9; folate is normal at 12.9 ABGs this morning on an unlisted FiO2 showed a pH of 7.417, PCO2 52.4, PO2 123.8 , bicarb 33.0, and oxygen saturation 98.7% 08/01/2017. Patient was seen today along with her student nurse. She reports she thinks she is better. Case management and social media manager is working on swing bed placement at [facility]. Chest x-ray today continues to show congestive heart failure. However, the patient appears to be breathing well. 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 She was given a B12 injection this admission and will need to continue these monthly. Medications been reviewed. We made no changes today. Labs been reviewed. Creatinine 0.30, BUN 12, sodium 135, potassium 3.8, magnesium 2.2 Exam (Progress Note) - Constitutional Vitals: Period Temp Pulse Resp BP Sys/Gallego Pulse Ox Last 24 Hr 96.7 F-98.6 F 77-90 16-22 101-127/52-70 97-100 Exam: Chest is asymmetrical with hardly any breath sounds on the right; no appreciable wheeze Heart no gallop Abdomen is nontender and nondistended; bowel sounds positive 4 Extremities with nothing to suggest acute deep venous thrombophlebitis Psychiatric oriented 3 Neurologic long-term motor function is intact Plan: Continue present treatment. field services manager/case management is working on swing bed placement at [facility]. See orders. Results - Labs CBC & BMP: 07/31/17 05:12 08/01/17 05:39
[2017-08-01] MEDS: SODIUM CHLORIDE 0.9% 1,000 ML IV SCH (13:38)
[2017-08-01] MEDS ORDERED: MAGNESIUM HYDROXIDE SUSP 30 ML UDCUP PO PRN (13:50)
--- NOTE | 2017-08-01 16:34 | Hospitalist Progress Note ---
Hospitalist: Subjective Interval history: Patient is awake and comfortable and denies any acute complaints. Exam - Constitutional Vitals: Period Temp Pulse Resp BP Sys/Gallego Pulse Ox Last 24 Hr 96.7 F-98.6 F 82-90 16-20 112-124/60-66 97-100 Exam: General: No Acute Distress HEENT: Normocephalic, atraumatic, Extra ocular movements intact Neck: Supple, No JVD Chest: Clear to auscultation B/L CV: S1 + S2 audible without murmur, gallop or rub Abd: soft, NT, Non-distended, BS + Ext: No edema Skin: No purpura, bruising or rash Rheumatologic: No Joint deformities Neurologic: Awake and alert Results - Labs CBC & BMP: 07/31/17 05:12 08/01/17 05:39 - Impressions Assessment and Plan: E Coli UTI, POA Status: Acute Assessment and plan: E. coli is pansensitive, continue Fortaz Current Visit: Yes Metabolic encephalopathy and acute delirium Status: Acute Assessment and plan: Was due to UTI, mental status is improving Current Visit: Yes S/P pneumonectomy Status: Acute Current Visit: Yes She possibly has left upper lung pulmonary pneumonitis, continue antibiotics Physical deconditioning, physical therapy has been ordered. dairy cattle farm worker is following for swing bed placement.
[2017-08-01] MEDS: AZITHROMYCIN INJ 500 MG in SODIUM CHLORIDE 0.9% 250 ML IV SCH (17:23)
[2017-08-01] MEDS: FERROUS SULFATE 325 MG TABLET PO SCH (21:30)
[2017-08-01] MEDS: LEVOTHYROXINE 75 MCG TABLET PO SCH (21:30)
[2017-08-01] MEDS: amLODIPine 5 MG TABLET PO SCH (21:31)
[2017-08-01] MEDS: ASPIRIN CHEW 81 MG TABLET PO SCH (21:31)
[2017-08-02] MEDS: SODIUM CHLORIDE 0.9% 1,000 ML IV SCH (07:23)
[2017-08-02] MEDS: methylPREDNISolone SOD SUC 40 MG/1 ML VIAL IV SCH (07:23)
[2017-08-02 08:06] VITALS: BP 122/61
[2017-08-02] MEDS: MULTIVITAMIN (CENTRUM) TABLET PO SCH (09:08)
[2017-08-02] MEDS: CALCIUM (CARBONATE) 500 MG TABLET PO SCH (09:08)
[2017-08-02] MEDS: PANTOPRAZOLE 40 MG TABLET PO SCH (09:08)
--- NOTE | 2017-08-02 10:33 | Discharge Summary ---
Hospital Course - Hospital Course Hospital Course: 81-year-old female with history of melanoma of the right lung status post partial pneumonectomy, hypertension, hypothyroidism admitted by the hospitalist service on 07/28/2017 with UTI, hyponatremia, and acute respiratory distress due to pneumonia with altered mental status. Patient was started on IV antibiotics, oxygen, duo nebs, blood and urine cultures were obtained. CT the chest showed no PE. Tree-in-bud infiltrate in the left upper lung which could represent bronchiolitis or mycobacterial infection and chronic aspiration. She also had mild patchy right perihilar opacity presumably inflammatory/ infectious. Enlarging cavitary area occupying the lower 40% of the right hemithorax that was enlarged since 2013. Dr. Cisneros her stone splitter was consulted for evaluation. Patient's UTI grew E. coli that is sensitive to most antibiotics. She improved mentally to her baseline and her appetite improved. 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 She has increased debility due to this hospitalization and she is being transferred to [facility] today. She will be discharged on Levaquin 250 mg p.o. daily for 7 days and she will keep her routine follow- up appointment with Dr. Cisneros. Complete discharge instructions were given. Care coordination, chart review, completed discharge paperwork took approximately 45 minutes. - Time spent with patient Time with patient DS: Greater than 30 minutes Diagnosis - Discharge Diagnosis (1) Pneumonia Status: Resolved (2) Acute respiratory distress Status: Resolved (3) Hyponatremia Status: Resolved (4) HTN (hypertension) Status: Chronic (5) S/P pneumonectomy Status: Chronic (6) UTI (urinary tract infection) Status: Resolved Discharge Plan - Discharge Data Disposition: Swing Bed, [facility] Based, [facility] Condition at Discharge: Stable Discharge Diet: advance to your usual diet Activity: as per physical therapy Contact your physician if you experience:: fever over 101 - Discharge Medications New Levofloxacin Tab [Levaquin Tab] 250 mg PO DAILY #7 tablet Pantoprazole Tab [Protonix Tab] 40 mg PO DAILY tablet Zinc Oxide Paste [Desitin Paste] 1 applic TOP PRN PRN applic PRN Reason: Diaper Rash Continue Calcium Carbonate [Calcium] 500 mg PO BID Multivit-Min36/Iron/Folic Acid [Geritol Complete Tablet] 1 each PO QAM Levothyroxine Tab [Synthroid Tab] 75 mcg PO BEDTIME hydroCHLOROthiazide [Hydrochlorothiazide] 25 mg PO DAILY PRN PRN Reason: FLUID amLODIPine [Norvasc] 5 mg PO BEDTIME Dexamethasone [Dexamethasone Tab] 2 mg PO QAM Aspirin 81 mg PO BEDTIME Ferrous Sulfate [Iron] 325 mg PO BEDTIME - Follow Up or Referral Follow Up: Winston Cisneros MD [Primary Care Provider] - (Keep routine follow-up appointment. ) - Forms/Instructions Exam - Constitutional Vitals: Period Temp Pulse Resp BP Sys/Gallego Pulse Ox Last 24 Hr 97.0 F-98.1 F 82-102 14-18 112-123/57-67 98-100 Exam: 81-year-old female, no acute distress Chest clear CV regular rate and rhythm Abdomen soft and nontender Extremities no edema Discharge Results Procedures and tests throughout hospitalization: Pending Orders 07/28/17 12:48 Blood Culture Stat 07/29/17 15:53 Sputum Culture and Gram Stain Stat Labs on day of discharge: Preliminary micro results at discharge 07/28/17 12:48 Blood Culture - Preliminary Blood No growth at 3 days 07/28/17 12:48 Blood Culture - Preliminary Blood No growth at 3 days DS: Provider Date of admission: 07/28/17 14:21 Primary care physician: Winston Cisneros MD Attending physician on admission: Mattie Conner MD Consults: 07/28/17 17:19 Consult to Physician [CONS] Routine Comment: pneumonia s/p partial pnemunectomy due to cancer Consulting Provider: Winston Fowler When should Consulting Provider be notified: In am When should Consulting Provider be notified: In am 07/29/17 09:09 Consult to Physician [CONS] Routine Comment: Consulting Provider: Consult to Specialist Group: Pulmonology When should Consulting Provider be notified: Now Person Notified: dr cisneros Date Notified: 07/29/17 Time Notified: 09:10 Consult Notification Comment: hx of lung ca 07/31/17 11:48 Consult to Physical Therapy [CONS] Routine Reason for Physical Therapy: Evaluate and Treat 07/31/17 11:49 Consult to Case Mgmt/Social Srvs [CONS] Routine Reason for Case Mgmt/Social Srvs: Discharge Planning Discharging clinician: PATRIA Neil Expected date of discharge: 08/02/17
--- NOTE | 2017-08-02 11:00 | Pulmonology Progress Note ---
Pulmonary - PN: Subj Interval history: Casey Miguel, [facility]NP[facility] acting as scribe for Dr. Winston Rocha Ms. Dasilva is an 81-year-old white female long-term patient of Dr. Fowler who is on initial pulmonary consultation 07/29/2017. At that time, our impressions were: 1. Probable urinary tract infection with gram-negative tuyet. 2. Altered mental status. Suspect it will buffing turner and counter to be secondary to #1 3. Possible early left upper lung pulmonary infection. 4. Iron deficiency anemia 5. Hypothyroidism on replacement. Check for adequacy of replacement. 6. Volume depletion with mild prerenal azotemia. Diuretics have been stopped. 7. Osteo-porosis. 8. 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 Progressive scarring in the right hemithorax with large cystic areas forming in the residual right lung and progressive pleural disease. 9. Mild hyponatremia and hypokalemia 07/30/2017. The patient was seen today along with her patient senior care manager. Today 's chest x-ray is stable. Sputum for Gram stain, culture and sensitivity was ordered yesterday, but thus far the patient has not produced a sputum for testing. Cold agglutinins are negative at 1:2. Legionella is pending. ABGs this morning on an FiO2 of 28% showed a pH of 7.405, PCO2 62.5, PO2 129.2, bicarb 38.3, and oxygen saturation 98.7%. Because of her CO2 retention, we will start Diamox 250 mg IV daily. Will repeat ABGs and BMP in the morning. Iron studies are normal. B12 is low at 292 so she will be given B12 injection today. We will obtain a folic acid level. Urine is growing a gram-negative tuyet. Final ID and sensitivities pending. She is on azithromycin and Fortaz and has been afebrile. Medications have been reviewed. Labs been reviewed. 07/31/2017. The patient was seen today along with her brother and several other family members. The patient is doing well this morning. She has had increased appetite secondary to Solu-Medrol. She has been on long-term dexamethasone treatment because of scarring in the right hemithorax. Admission she has sodium of 125 and with the discontinuation of her hydrochlorothiazide, this has improved to 135. Urine culture grew E. coli. This is being appropriately treated with antibiotics. Mentation has improved back to her baseline. Her family had several questions regarding her need for home health, physical therapy, etc. We have spoken with Venus Walter, high school social studies teacher, and will ask her to speak with the patient and her family regarding discharge planning needs. We feel she will most likely benefit from home health and home physical therapy. Medications have been reviewed. We made no changes today. Labs been reviewed. White count is 16,500 with 92.4% segs; H&H 10.4/33.1; platelet count 130,000; creatinine 0.30, BUN 13, sodium 135, potassium 3.7, magnesium 1.9; folate is normal at 12.9 ABGs this morning on an unlisted FiO2 showed a pH of 7.417, PCO2 52.4, PO2 123.8 , bicarb 33.0, and oxygen saturation 98.7% 08/01/2017. Patient was seen today along with her student nurse. She reports she thinks she is better. Case management and vp digital marketing social media and crm is working on swing bed placement at [facility]. Chest x-ray today continues to show congestive heart failure. However, the patient appears to be breathing well. 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 She was given a B12 injection this admission and will need to continue these monthly. Medications been reviewed. We made no changes today. Labs been reviewed. Creatinine 0.30, BUN 12, sodium 135, potassium 3.8, magnesium 2.2 08/02/2017. The patient was seen today along with her daughter and son-in-law. Patient has been accepted to swing bed at [facility] today. We have changed her antibiotic to Levaquin 250 mg daily to cover her E. coli urinary tract infection. Her methylprednisolone can be changed to Decadron 2 mg on Mondays and . The Diamox can be changed to 250 mg p.o. daily. Overall , the patient is doing reasonably well. She is, however, deconditioned and needs to continue with physical therapy, occupational therapy, and any other therapies deemed necessary. She has a regularly scheduled follow-up with Dr. Rocha, and she can keep this upon discharge from swing bed. Medications have been reviewed. Labs been reviewed. No new labs were drawn today. Exam (Progress Note) - Constitutional Vitals: Period Temp Pulse Resp BP Sys/Gallego Pulse Ox Last 24 Hr 97.0 F-98.1 F 82-102 14-18 112-123/57-67 98-100 Exam: Chest is asymmetrical with hardly any breath sounds on the right; no appreciable wheeze Heart no gallop Abdomen is nontender and nondistended; bowel sounds positive 4 Extremities with nothing to suggest acute deep venous thrombophlebitis Psychiatric oriented 3 Neurologic long-term motor function is intact Plan: Continue present treatment. Agree with swing bed placement today. Conversion to oral medications as above. She can keep her regularly scheduled follow-up appointment with Dr. Rocha. We will sign off. Please reconsult as needed. Results - Labs CBC & BMP: 07/31/17 05:12 08/01/17 05:39 Specialty Discharge - Follow Up or Referrals Follow up with: Winston Rocha MD [Primary Care Provider] - 12/14/17 1:15 pm (Keep routine follow-up appointment. CBC AND BMP CHEST X-RAY Appt with December 17, 2017 1:40 p.m)
== END 2017-08-02 12:18 | disposition swing bed (61) | DRG 193 ==
LOC: EDUNIT# → EDBD → N.ED 11:58 → SUATTDRO 14:21 → N.EDINP 14:21 → N.TELEN 16:07
PROVIDERS: ADMIT Internal Medicine; ATTEND Hospitalist

== ENCOUNTER 2017-12-17 15:19 | Inpatient (IN) ==
[2017-12-17] MEDS: DEXTROSE 5% NACL 0.45% 1,000 ML IV SCH (18:15)
[2017-12-17 18:50] LABS: ABG Base Excess 10.7 MMOL/L (-2.5-2.5); ABG HCO3 34.4 MMOL/L (20-26); ABG Oxygen Saturation 96.2 % (95-100); ABG PCO2 48.7 MM HG (35-48); ABG PH 7.476 (7.35-7.45); ABG PO2 75.2 MM HG (80-95)
[2017-12-17] MEDS ORDERED: hydroCHLOROthiazide 25 MG TABLET PO PRN (19:11)
[2017-12-17 19:27] LABS: Alanine Aminotransferase 39 U/L (13-56); Albumin 2.5 G/DL (3.4-5.0); Alkaline Phosphatase 61 U/L (45-117); Aspartate Amino Transferase 32 U/L (0-37); Bilirubin,Total < 0.39 MG/DL (0.2-1.0); Blood Urea Nitrogen 18 MG/DL (7-18); Calcium 8.9 MG/DL (8.5-10.1); Glucose 107 MG/DL (74-106); Osmolality,Calculated 259.9 MOS/KG (273-304); Potassium 4.1 MMOL/L (3.5-5.1); Sodium 129 MMOL/L (136-145); Total Protein 6.3 G/DL (6.4-8.3)
[2017-12-17] MEDS: LEVOFLOXACIN INJ 250 MG in PREMIX 1 EACH IV SCH (21:58)
[2017-12-17] MEDS: FERROUS SULFATE 325 MG TABLET PO SCH (22:03)
[2017-12-17] MEDS: ASPIRIN CHEW 81 MG TABLET PO SCH (22:03)
[2017-12-17] MEDS: CALCIUM (CARBONATE) 500 MG TABLET PO SCH (22:04)
[2017-12-17] MEDS: amLODIPine 5 MG TABLET PO SCH (22:04)
[2017-12-17] MEDS: LEVOTHYROXINE 75 MCG TABLET PO SCH (22:04)
[2017-12-17] MEDS: POTASSIUM CHLORIDE 10 MEQ TABLET PO SCH (22:04)
[2017-12-18 05:15] LABS: Basophils % 0.2 % (0.0-0.8); Eosinophils % 0.1 % (0.00-10.9); Hematocrit 34.6 VOL% (35.7-47.0); Hemoglobin 10.9 GM/DL (12.0-16.0); Immature Granulocytes Absolute 0.19 #; Lymphocytes # 1.3 10*3/uL (1.4-4.0); Lymphocytes % 13.3 % (21.3-54.2); Mean Corpuscular HGB Conc 31.5 GM/DL (32-36); Mean Corpuscular Hemoglobin 28 PG (27-34); Mean Platelet Volume 8.8 FL (9.6-12.0); Monocytes # 0.7 10*3/uL (0.11-0.8); Monocytes % 7.3 % (1.7-12.7); Neutrophils # 7.4 10*3/uL (1.4-7.4); Neutrophils % 77.1 % (38.7-73.9); Platelet Count 396 T/CUMM (130-400); Red Blood Count 3.93 MC/CUMM (3.8-5.5); Red Cell Distribution Width 15.7 % (9.3-17.3); White Blood Count 9.5 T/CUMM (4-12)
[2017-12-18 05:41] LABS: Calcium 8.2 MG/DL (8.5-10.1); Osmolality,Calculated 257.9 MOS/KG (273-304); Potassium 3.8 MMOL/L (3.5-5.1)
[2017-12-18] MEDS: DEXTROSE 5% NACL 0.45% 1,000 ML IV SCH (10:56)
[2017-12-18] MEDS: CALCIUM (CARBONATE) 500 MG TABLET PO SCH ×2 (10:56→20:47)
[2017-12-18] MEDS: POTASSIUM CHLORIDE 10 MEQ TABLET PO SCH ×3 (10:56→20:47)
[2017-12-18] MEDS: SKIN HEALING OINT (AQUAPHOR) 50 GM TUBE TOP PRN (10:57)
[2017-12-18 12:43] LABS: Apearance,Urine CLEAR (Clear); Bilirubin,Urine Negative (Negative); Blood, Urine Negative (Negative); Glucose,Urine (UA) Negative (Negative); Ketones,Urine Negative (Negative); Mucus,Urine Occasional /LPF (Occasional); Nitrite,Urine Negative (Negative); Protein,Urine Negative; RBC,Urine <1 /HPF (0-4); Squamous Epithelial Cell,Urine Occasional /HPF (0-10); Urine Color Straw (Yellow); Urine Specific Gravity 1.005 (1.001-1.035); Urine Urobilinogen < 2.0 EU/DL (0.2-1.0); WBC,Urine 1 /HPF (0-6)
[2017-12-18] MEDS: LEVOFLOXACIN INJ 250 MG in PREMIX 1 EACH IV SCH (16:09)
[2017-12-18] MEDS: COLLAGENASE OINT 30 GM TUBE TOP SCH (16:10)
[2017-12-18] MEDS: NYSTATIN 500,000 UNIT/5 ML UDCUP SWISH/SWAL SCH ×2 (17:30→20:47)
[2017-12-18] MEDS ORDERED: ACETAMINOPHEN 500 MG TABLET ONE (18:34)
[2017-12-18] MEDS: amLODIPine 5 MG TABLET PO SCH (20:47)
[2017-12-18] MEDS: LEVOTHYROXINE 75 MCG TABLET PO SCH (20:47)
[2017-12-18] MEDS: DONEPEZIL 5 MG TABLET PO SCH (20:47)
[2017-12-18] MEDS: FERROUS SULFATE 325 MG TABLET PO SCH (20:47)
[2017-12-18] MEDS: ASPIRIN CHEW 81 MG TABLET PO SCH (20:47)
[2017-12-19] MEDS: DEXTROSE 5% NACL 0.45% 1,000 ML IV SCH ×2 (01:36→08:50)
[2017-12-19 06:44] LABS: Basophils % 0.2 % (0.0-0.8); Hematocrit 35.7 VOL% (35.7-47.0); Hemoglobin 11.3 GM/DL (12.0-16.0); Immature Granulocytes % 1.5 %; Immature Granulocytes Absolute 0.15 #; Lymphocytes # 0.8 10*3/uL (1.4-4.0); Lymphocytes % 8.2 % (21.3-54.2); Mean Corpuscular HGB Conc 31.7 GM/DL (32-36); Mean Corpuscular Hemoglobin 28 PG (27-34); Mean Corpuscular Volume 88.1 FL (87-102); Mean Platelet Volume 8.8 FL (9.6-12.0); Monocytes # 0.8 10*3/uL (0.11-0.8); Monocytes % 7.9 % (1.7-12.7); Neutrophils # 8.4 10*3/uL (1.4-7.4); Neutrophils % 82.2 % (38.7-73.9); Platelet Count 362 T/CUMM (130-400); Red Blood Count 4.05 MC/CUMM (3.8-5.5); Red Cell Distribution Width 15.9 % (9.3-17.3); White Blood Count 10.3 T/CUMM (4-12)
[2017-12-19 07:15] LABS: Albumin 2.1 G/DL (3.4-5.0); Bilirubin,Total 0.5 MG/DL (0.2-1.0); Calcium 8.3 MG/DL (8.5-10.1); Osmolality,Calculated 256.9 MOS/KG (273-304); Potassium 3.6 MMOL/L (3.5-5.1); Total Protein 5.4 G/DL (6.4-8.3)
[2017-12-19] MEDS: CALCIUM (CARBONATE) 500 MG TABLET PO SCH ×2 (08:49→22:44)
[2017-12-19] MEDS: POTASSIUM CHLORIDE 10 MEQ TABLET PO SCH ×3 (08:49→22:44)
[2017-12-19] MEDS: NYSTATIN 500,000 UNIT/5 ML UDCUP SWISH/SWAL SCH ×4 (08:49→22:44)
[2017-12-19] MEDS: MAGNESIUM CHLORIDE 64 MG TABLET PO SCH (12:46)
[2017-12-19] MEDS: COLLAGENASE OINT 30 GM TUBE TOP SCH (15:35)
[2017-12-19] MEDS: SKIN HEALING OINT (AQUAPHOR) 50 GM TUBE TOP PRN (15:35)
[2017-12-19] MEDS: LEVOFLOXACIN INJ 250 MG in PREMIX 1 EACH IV SCH (15:35)
[2017-12-19] MEDS: DONEPEZIL 5 MG TABLET PO SCH (22:44)
[2017-12-19] MEDS: FERROUS SULFATE 325 MG TABLET PO SCH (22:44)
[2017-12-19] MEDS: ASPIRIN CHEW 81 MG TABLET PO SCH (22:44)
[2017-12-19] MEDS: amLODIPine 5 MG TABLET PO SCH (22:45)
[2017-12-19] MEDS: LEVOTHYROXINE 75 MCG TABLET PO SCH (22:46)
[2017-12-20] MEDS: DEXTROSE 5% NACL 0.45% 1,000 ML IV SCH ×2 (02:39→22:17)
[2017-12-20] MEDS ORDERED: ACETAMINOPHEN 325 MG TABLET PO PRN (03:45)
[2017-12-20] MEDS ORDERED: DEXAMETHASONE 4 MG TABLET PO SCH (09:00)
[2017-12-20] MEDS: POTASSIUM CHLORIDE 10 MEQ TABLET PO SCH ×3 (09:08→22:16)
[2017-12-20] MEDS: MAGNESIUM CHLORIDE 64 MG TABLET PO SCH (09:08)
[2017-12-20] MEDS: NYSTATIN 500,000 UNIT/5 ML UDCUP SWISH/SWAL SCH ×4 (09:08→22:17)
[2017-12-20] MEDS: CALCIUM (CARBONATE) 500 MG TABLET PO SCH ×2 (09:09→22:16)
[2017-12-20] MEDS: COLLAGENASE OINT 30 GM TUBE TOP SCH (10:30)
[2017-12-20] MEDS: LEVOFLOXACIN INJ 250 MG in PREMIX 1 EACH IV SCH (16:14)
[2017-12-20] MEDS: FERROUS SULFATE 325 MG TABLET PO SCH (22:16)
[2017-12-20] MEDS: LEVOTHYROXINE 75 MCG TABLET PO SCH (22:16)
[2017-12-20] MEDS: DONEPEZIL 5 MG TABLET PO SCH (22:16)
[2017-12-20] MEDS: amLODIPine 5 MG TABLET PO SCH (22:20)
[2017-12-20] MEDS: ASPIRIN CHEW 81 MG TABLET PO SCH (22:20)
[2017-12-21] MEDS: NYSTATIN 500,000 UNIT/5 ML UDCUP SWISH/SWAL SCH (09:32)
[2017-12-21] MEDS: MAGNESIUM CHLORIDE 64 MG TABLET PO SCH (09:32)
[2017-12-21] MEDS: POTASSIUM CHLORIDE 10 MEQ TABLET PO SCH (09:32)
[2017-12-21] MEDS: CALCIUM (CARBONATE) 500 MG TABLET PO SCH (09:32)
[2017-12-21] MEDS: COLLAGENASE OINT 30 GM TUBE TOP SCH (09:33)
[2017-12-21 10:15] VITALS: BP 138/76
== END 2017-12-21 13:00 | disposition home health service (06) | DRG 884 ==
LOC: N.5E 17:08
PROVIDERS: ADMIT Internal Medicine Pulmonary Disease; ATTEND Internal Medicine Pulmonary Disease